=== PATIENT | female | born 1990 | race Asian ===

== ENCOUNTER → 2017-11-18 | Outpatient (CLI) | payer OTHER ==
[~2017-11-18] MED LIST: GADAVIST IV
== END | disposition home or self-care (01) ==
LOC: C.MRI 17:38
DX: N28.1 Cyst of kidney, acquired (principal)

== ENCOUNTER → 2018-06-19 | Outpatient (CLI) | payer OTHER ==
--- NOTE | 2018-06-19 16:11 | DIAGNOSTIC IMAGING REPORT ---
(XIMENA/BLAD)RETROPERITON COMP CLINICAL HISTORY: 27 years-old Female presenting with RENAL CYST. TECHNIQUE: Real-time grayscale and limited color Doppler ultrasound imaging of the kidneys and bladder was performed. COMPARISON: MR abdomen from 11/18/2017. FINDINGS: Right kidney: Normal echogenicity of renal parenchyma. Right kidney measures 11.0 cm. No hydronephrosis. 2.7 x 2.7 x 2.9 cm anechoic multilobular cyst at the upper pole with limited thin septations. Left kidney: Normal echogenicity of renal parenchyma. Left kidney measures 11.2 cm. No hydronephrosis. 1.0 cm simple cyst noted at the upper pole. Bladder: Normal. Left ureteral jet not present. Other: None. IMPRESSION: 1. Minimally complex 2.9 cm right renal cyst (Bosniak 2). 2. No hydronephrosis. Electronically signed by: Les Mustafa M.D. 06/19/2018 4:10 PM Dictated Date/Time: 06/19/2018 4:08 PM
== END | disposition home or self-care (01) ==
LOC: C.ULTR 15:36
PROVIDERS: ATTEND Urology
DX: N28.1 Cyst of kidney, acquired (principal)